=== PATIENT | male | born 1950 | race Caucasian/White ===

== ENCOUNTER 2024-05-30 11:31 | Emergency (ER) | payer OTHER ==
[~2024-05-30] VITALS: Ht 172.7 cm; Wt 68.0 kg
[2024-05-30] MEDS ORDERED: COZAAR25 MG (12:39)
[2024-05-30] MEDS ORDERED: AMLODIPINE-OLM1 EAC1 (12:39)
[2024-05-30] MEDS ORDERED: HYDROCHLOROTH12.5 MG (12:40)
[2024-05-30] MEDS ORDERED: HYDROGEN PEROXIDE 473 ML BOTTLE TOP ONE (13:02)
[2024-05-30] MEDS ORDERED: LIDOCAINE HCL 1% 10ML VIAL ONE (13:02)
[2024-05-30] MEDS ORDERED: DIPHTH,PERTUSS(ACELL),TET VAC 0.5 ML SYRINGE IM ONE (14:00)
== END 2024-05-30 15:24 | disposition home or self-care (01) ==
LOC: ER 11:33
DX: S01.21XA Laceration without foreign body of nose, initial encounter (principal); W19.XXXA Unspecified fall, initial encounter; Y93.89 Activity, other specified; Y92.89 Other specified places as the place of occurrence of the external cause; Y99.8 Other external cause status; I10 Essential (primary) hypertension; Z88.0 Allergy status to penicillin
CPT/HCPCS: 12013; 70160; 73560; 96372; 99283; J3490